=== PATIENT | female | born 1960 | race Caucasian/White ===

== ENCOUNTER 2020-05-14 07:24 | Outpatient (REF) | payer OTHER, SELFPAY ==
--- NOTE | 2020-05-14 07:28 | MM_ITS ---
EXAMINATION: MM SCREENING DIGITAL BREAST TOMOSYNTHESIS, BILATERAL CLINICAL INFORMATION: Screening. Asymptomatic. The lifetime risk of breast cancer based on the Tyrer-Cuzick Model is 11%. COMPARISON: Mammography: 05/09/2019, 05/03/2018, 04/21/2017 TECHNIQUE: Digital breast tomosynthesis is performed in both the craniocaudal and mediolateral oblique views along with computer-aided detection (CAD). Synthesized 2D images are generated from the tomosynthesis. FINDINGS: There are scattered areas of fibroglandular density (ACR BI-RADS breast composition Category b). Parenchymal pattern is similar to prior exams. There is no significant mass or architectural abnormality. Numerous fine punctate calcifications are again present central right breast and posterior outer left breast. There are no significant changes in number or distribution from prior exams. The axilla and skin contours are unremarkable. MM/MM tomosynthesis screening BI IMPRESSION: No significant changes from prior exams. ASSESSMENT: BI-RADS 2: Benign RECOMMENDATION: Routine annual mammography screening. This patient's information was entered into a reminder system with a target due date for their next mammogram.
== END 2020-05-14 07:25 | disposition home or self-care (01) ==
LOC: HO.MAMMO 07:24
PROVIDERS: PCP Family Medicine; Visit Provider Family Medicine
DX: Z12.31 Encounter for screening mammogram for malignant neoplasm of breast (principal)
CPT/HCPCS: 77063; 77067

== ENCOUNTER 2021-07-09 07:17 | Outpatient (REF) | payer OTHER, SELFPAY ==
--- NOTE | ~2021-07-09 | MM_ITS ---
EXAMINATION: MM SCREENING DIGITAL BREAST TOMOSYNTHESIS, BILATERAL CLINICAL INFORMATION: Screening. Asymptomatic. The lifetime risk of breast cancer based on the Tyrer-Cuzick Model is 10%. COMPARISON: Mammography: 05/14/2020, 05/09/2019, 05/03/2018 TECHNIQUE: Digital breast tomosynthesis is performed in both the craniocaudal and mediolateral oblique views along with computer-aided detection (CAD). Synthesized 2D images are generated from the tomosynthesis. FINDINGS: There are scattered areas of fibroglandular density (ACR BI-RADS breast composition Category b). Parenchymal pattern is similar to prior studies. There is no developing density or interval mass or architectural abnormality. Again, numerous fine calcifications are grouped central right breast and posterior outer left breast. There are no increasing calcifications. The axilla and skin contours are unremarkable. No significant changes. MM/MM tomosynthesis screening BI IMPRESSION: No mammographic evidence of malignancy. ASSESSMENT: BI-RADS 2: Benign RECOMMENDATION: Routine annual mammography screening. This patient's information was entered into a reminder system with a target due date for their next mammogram.
== END 2021-07-09 07:18 | disposition home or self-care (01) ==
LOC: HO.MAMMO 07:17
PROVIDERS: PCP Family Medicine; Visit Provider Family Medicine
DX: Z12.31 Encounter for screening mammogram for malignant neoplasm of breast (principal)
CPT/HCPCS: 77063; 77067

== ENCOUNTER 2022-07-18 07:21 | Outpatient (REF) | payer OTHER, SELFPAY ==
--- NOTE | ~2022-07-18 | MM_ITS ---
EXAMINATION: MM SCREENING DIGITAL BREAST TOMOSYNTHESIS, BILATERAL CLINICAL INFORMATION: Screening. Asymptomatic. The lifetime risk of breast cancer based on the Tyrer-Cuzick Model is 9%. COMPARISON: Mammography: 07/09/2021, 05/14/2020, 05/09/2019, 05/03/2018 TECHNIQUE: Digital breast tomosynthesis is performed in both the craniocaudal and mediolateral oblique views along with computer-aided detection (CAD). Synthesized 2D images are generated from the tomosynthesis. FINDINGS: There are scattered areas of fibroglandular density (ACR BI-RADS breast composition Category b). Parenchymal pattern is similar to prior exams and there is no developing density or interval architectural abnormality. There are no significant masses, abnormal calcifications, or other abnormalities. Punctate calcifications are again noted central and outer right breast and outer left breast similar in number and distribution to prior studies. The axilla and skin contours are unremarkable. No significant changes. MM/MM tomosynthesis screening BI IMPRESSION: No mammographic evidence of malignancy. ASSESSMENT: BI-RADS 2: Benign RECOMMENDATION: Routine annual mammography screening. This patient's information was entered into a reminder system with a target due date for their next mammogram.
== END 2022-07-18 07:22 | disposition home or self-care (01) ==
LOC: HO.MAMMO 07:21
PROVIDERS: PCP Family Medicine; Visit Provider Family Medicine
DX: Z12.31 Encounter for screening mammogram for malignant neoplasm of breast (principal)
CPT/HCPCS: 77063; 77067

== ENCOUNTER 2022-07-22 12:47 | Outpatient (REF) | payer OTHER, SELFPAY ==
--- NOTE | ~2022-07-22 | MM_ITS ---
EXAMINATION: BONE DENSITOMETRY CLINICAL INDICATION: Asymptomatic menopausal state. COMPARISON: Baseline BD dated 12/30/2014. TECHNIQUE: Using a [employer] DXA System (software version: 13.1) manufactured by [employer], dual-energy x-ray absorptiometry was performed of the lumbar spine and left hip. The images are of good technical quality. Summary results are attached. FINDINGS: AP SPINE L1-L4: Current: BMD 1.083 g/cm2, Z-score 1.0, T-score -0.8, normal, 1.5% increase from baseline (<5% change is not significant). Baseline: BMD 1.067 g/cm2. LEFT FEMUR, NECK: Current: BMD 0.756 g/cm2, Z-score -0.4, T-score -2.0, osteopenia. Baseline: BMD 0.863 g/cm2. LEFT FEMUR, TOTAL: Current: BMD 0.834 g/cm2, Z-score 0.0, T-score -1.4, osteopenia, 10.2% decrease from baseline (<5% change is not significant). Baseline: BMD 0.929 g/cm2. IDENTIFIED RISK FACTORS: Menopause. HISTORY OF FRACTURE: None listed. MEDICATIONS: Calcium supplements or multivitamin, vitamin D. MM/XR DEXA axial skeleton IMPRESSION: 1. DIAGNOSIS: Osteopenia based on the lowest T-score value of -2.0 in the femoral neck applying World Health Organization criteria. 2. 10-YEAR FRACTURE RISK PREDICTION, FRAX: Major osteoporotic fracture (clinical spine, forearm, hip or shoulder) 9.7%. Hip fracture 1.5%. 3. Treatment Recommendations: NOF guidelines recommend consideration for treatment in postmenopausal women and men age 50 and older presenting with the following: -A hip or vertebral (clinical or morphometric) fracture. -T-score less than or equal to -2.5 at the femoral neck or spine after appropriate evaluation to exclude secondary causes. -Low bone mass at the hip or spine and a 10-year fracture probability by FRAX of greater than or equal to 3% for hip fracture or greater than or equal to 20% for major osteoporotic fracture based on the [place] adapted WHO algorithm. 4. Other Recommendations: All treatment decisions require clinical judgment and consideration of individual patient factors, including patient preferences, comorbidities, previous drug use, risk factors not captured in the FRAX model (e.g. frailty, falls, vitamin D deficiency, increased bone turnover, interval significant decline in bone density) and possible under or overestimation of fracture risk by FRAX. Additional medical evaluation for secondary cause of low bone mineral density may be appropriate. FUTURE SCAN RECOMMENDATION: People with diagnosed cases of osteoporosis or at high risk for fracture should have regular bone mineral density tests. For patients eligible for Medicare, routine testing is allowed once every 2 years. The testing frequency can be increased to one year for patients who have rapidly progressing disease, those who are receiving or discontinuing medical therapy to restore bone mass, or have additional risk factors.
== END 2022-07-22 12:48 | disposition home or self-care (01) ==
LOC: HO.MAMMO 12:47
PROVIDERS: PCP Family Medicine; Visit Provider Family Medicine
DX: Z13.820 Encounter for screening for osteoporosis (principal); Z78.0 Asymptomatic menopausal state
CPT/HCPCS: 77080

== ENCOUNTER 2023-07-24 07:22 | Outpatient (REF) | payer OTHER, SELFPAY ==
--- NOTE | ~2023-07-24 | MM_ITS ---
EXAMINATION: MM SCREENING DIGITAL BREAST TOMOSYNTHESIS, BILATERAL CLINICAL INFORMATION: Screening. Asymptomatic. COMPARISON: Mammography: This study is compared with prior exams dating back to 2019. TECHNIQUE: Digital breast tomosynthesis is performed in both the craniocaudal and mediolateral oblique views along with computer-aided detection (CAD). Synthesized 2D images are generated from the tomosynthesis. FINDINGS: There are scattered areas of fibroglandular density (ACR BI-RADS breast composition Category b). There are no significant masses, abnormal calcifications, or other abnormalities. There are benign, scattered calcifications in each breast. MM/MM tomosynthesis screening BI IMPRESSION: No mammographic evidence of malignancy. ASSESSMENT: BI-RADS BI-RADS 2 - Benign Findings RECOMMENDATION: Routine annual mammography screening. 1 year F/U This examination should not preclude the clinical evaluation of a suspicious palpable abnormality. This patient's information was entered into a reminder system with a target due date for their next mammogram.
== END 2023-07-24 07:23 | disposition home or self-care (01) ==
LOC: HO.MAMMO 07:22
PROVIDERS: PCP Family Medicine; Visit Provider Family Medicine
DX: Z12.31 Encounter for screening mammogram for malignant neoplasm of breast (principal)
CPT/HCPCS: 77063; 77067

== ENCOUNTER → 2023-07-24 07:45 | Outpatient (BNV) | payer OTHER, SELFPAY | PROVIDERS: PCP Family Medicine; Visit Provider Radiology Diagnostic Radiology | DX: Z12.31 Encounter for screening mammogram for malignant neoplasm of breast (principal) | CPT/HCPCS: 77063; 77067 ==

== ENCOUNTER 2024-09-14 07:22 | Outpatient (REF) | payer OTHER, SELFPAY | END 2024-09-14 07:23 | disposition home or self-care (01) | LOC: HO.MAMMO 07:22 | PROVIDERS: PCP Family Medicine; Visit Provider Family Medicine | DX: Z12.31 Encounter for screening mammogram for malignant neoplasm of breast (principal) | CPT/HCPCS: 77063; 77067 ==

== ENCOUNTER → 2024-09-14 07:30 | Outpatient (BNV) | payer OTHER, SELFPAY | PROVIDERS: PCP Family Medicine; Visit Provider Internal Medicine | DX: Z12.31 Encounter for screening mammogram for malignant neoplasm of breast (principal) | CPT/HCPCS: 77063; 77067 ==

== ENCOUNTER 2024-10-11 08:13 | Outpatient (REF) | payer OTHER, SELFPAY ==
--- NOTE | ~2024-10-11 | MM_ITS ---
EXAMINATION: MM DIAGNOSTIC DIGITAL MAMMOGRAPHY, RIGHT CLINICAL INFORMATION: Screening for new grouped calcifications in the upper outer right breast middle depth. COMPARISON: Mammography: [facility] on PACS. TECHNIQUE: Digital mammography is performed in craniocaudal and mediolateral oblique views along with computer-aided detection (CAD). FINDINGS: There are scattered areas of fibroglandular density (ACR BI-RADS breast composition Category b). There are new grouped punctate and linear calcifications in the upper outer quadrant middle depth. No suspicious masses or other abnormal findings. Results are provided to the patient at time of visit by the technologist. MM/MM added views RT IMPRESSION: New grouped linear and punctate calcifications in the upper outer right breast. Histology with stereotactic core needle biopsy is recommended at this time. The findings and recommendations were discussed with the patient and the procedure will be scheduled. ASSESSMENT: BI-RADS BI-RADS 4 - Suspicious finding RECOMMENDATION: Biopsy recommended This patient's information was entered into a reminder system with a target due date for their next mammogram. Electronically signed by: Marycruz Pineda DO 10/11/2024 09:21 AM EDT
--- OUTSIDE RECORDS SUMMARY | 2024-10-11 08:18 | XMS_ITS | Patient Health Record ---
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 Problem Ankle sprain (58198630) Ankle Sprain (845.00) Active confirmed Problem Sprain of calcaneofibular ligament (66642105) Ankle Sprain/Latera l Ankle Sprain (845.02) Active confirmed Problem Ganglion cyst (60597782) Ganglion Cyst (727.43) Active confirmed Problem Hammer toe (832683462) Hammer toe (735.4) Active confirmed Problem Pain in limb (39341915) Pain in Limb (729.5) Active confirmed Plan Of Treatment Pending Test Test Name Order Date X ray : Ankle, left 3V 01/18/2012 51153 I&D ABSCESS- SIMPLE,SINGLE 012 23010- I&D ABSCESS-COMPLICATED,MULTI 06/2011, J0702- INJECT TENDON ORIGIN/INSER T 01/18/2012, J0702- INJECT or DRAIN, JOINT/BUR SA 01/18/2012 Insurance Providers Payer Name Payer Address Payer Phone Subscriber Number Group Number Insured Name Patient Relationship to Insured Coverage Start Date Coverage End Date [facility] [address] [place] [address] [phone] [id number] Padmini Price Self - patient is the insured Medical (General) History Medical History History ICD Code back, hip, knee pain chicken pox
== END 2024-10-11 08:14 | disposition home or self-care (01) ==
LOC: HO.MAMMO 08:13
PROVIDERS: PCP Family Medicine; Visit Provider Family Medicine
DX: R92.8 Other abnormal and inconclusive findings on diagnostic imaging of breast (principal)
CPT/HCPCS: 77065

== ENCOUNTER → 2024-10-11 08:30 | Outpatient (BNV) | payer OTHER, SELFPAY | PROVIDERS: PCP Family Medicine; Visit Provider Internal Medicine | DX: R92.1 Mammographic calcification found on diagnostic imaging of breast (principal) | CPT/HCPCS: 77061; 77065 ==

== ENCOUNTER 2024-11-06 07:46 | Outpatient (REF) | payer OTHER, SELFPAY ==
--- NOTE | ~2024-11-06 | MM_ITS ---
EXAMINATION: STEREOTACTICALLY-GUIDED RIGHT BREAST BIOPSY CLINICAL INFORMATION: New grouped calcifications upper outer right breast. COMPARISON: Priors on PACS. INFORMED CONSENT: After the details of the procedure, as well as the risks (including, but not limited to, bleeding, hematoma formation, and infection), benefits and alternatives (including doing nothing, short-interval follow up, and surgery) to the procedure were explained to the patient in detail and all of her questions were answered, informed written consent was obtained. TECHNIQUE/FINDINGS: A timeout was performed. The lesion intended for biopsy was identified stereotactically and targeted. The skin of the right breast was then cleansed with sterile solution. Using stereotactic guidance, aseptic technique, and 1% lidocaine with and without epinephrine for local anesthesia, a total of 12 cores were obtained through the targeted area with a 9-gauge vacuum-assisted Eviva core biopsy device from a superior approach. Specimen radiography reveals the targeted calcifications in the sampled tissue. At the completion of tissue sampling, a single cork-shaped metallic clip was deposited at the biopsy site. Adequate sampling was achieved. The postprocedure 2-view direct digital mammogram reveals satisfactory positioning of the biopsy clip. The patient tolerated the procedure well and, after assuring adequate hemostasis, was discharged in good condition after reviewing postbiopsy breast care instructions. Final pathology results are pending. MM/MM stereotactic biopsy RT IMPRESSION: 1. Uncomplicated stereotactically-guided core biopsy of the right breast. The 2-view direct digital postprocedure mammogram reveals satisfactory positioning of the biopsy clip. 2. Final pathology results are pending. A separate report with final recommendations will be issued once these results are made available. Electronically signed by: Marycruz Pineda DO 11/06/2024 10:45 AM EDT
--- OUTSIDE RECORDS SUMMARY | 2024-11-06 07:48 | XMS_ITS | Patient Health Record ---
Author Organization [facility] Address [address] [place] [address] Care Team Providers Care Certified Professional Ergonomist Name Role Phone Paul Linda MD Primary Care Provider Unavailab Rolando Bryan Unavailable [phone] Reason For Referral No Information Medications Medication SIG (Take, Route, Frequency, Duration) Notes Start Date End Date Status Lexapro 10 MG 1 tablet Orally Once a day; Duration: 30 day(s) Active Problems Problem Type SNOMED Code ICD Code Onset Dates Problem Status W/U Status Risk Notes Problem Subungual exostosis (12557856) 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) Active confirmed Problem Ankle sprain (19581535) Ankle Sprain (845.00) Active confirmed Problem Sprain of calcaneofibular ligament (85140933) Ankle Sprain/Latera l Ankle Sprain (845.02) Active confirmed Problem Ganglion cyst (44343005) Ganglion Cyst (727.43) Active confirmed Problem Hammer toe (303783627) Hammer toe (735.4) Active confirmed Problem Pain in limb (07677298) Pain in Limb (729.5) Active confirmed Plan Of Treatment Pending Test Test Name Order Date X ray : Ankle, left 3V 01/18/2012 11504 I&D ABSCESS- SIMPLE,SINGLE 012 96870- I&D ABSCESS-COMPLICATED,MULTI 06/2011, J0702- INJECT TENDON ORIGIN/INSER T 01/18/2012, J0702- INJECT or DRAIN, JOINT/BUR SA 01/18/2012 Insurance Providers Payer Name Payer Address Payer Phone Subscriber Number Group Number Insured Name Patient Relationship to Insured Coverage Start Date Coverage End Date [facility] [address] [place] [address] [phone] [id number] Padmini Price Self - patient is the insured Medical (General) History Medical History History ICD Code back, hip, knee pain chicken pox
[2024-11-06] MEDS: Lidocaine HCl 1 % 20 ML VIAL 4 ML SUBCUT (08:58)
[2024-11-06] MEDS: Lidocaine HCl 1%/Epi 1:100,000 10 ML VIAL SUBCUT (08:59)
== END 2024-11-06 07:47 | disposition home or self-care (01) ==
LOC: HO.MAMMO 07:46
PROVIDERS: PCP Family Medicine; Visit Provider Family Medicine
DX: R92.8 Other abnormal and inconclusive findings on diagnostic imaging of breast (principal)
CPT/HCPCS: 19081; 88305; 88341; 88342; 88360; A4648; J2003; J2004

== ENCOUNTER → 2024-11-06 08:00 | Outpatient (BNV) | payer OTHER, SELFPAY | PROVIDERS: PCP Family Medicine; Visit Provider Internal Medicine | DX: R92.1 Mammographic calcification found on diagnostic imaging of breast (principal) | CPT/HCPCS: 19081; 77065 ==

== ENCOUNTER 2024-11-20 14:37 | Outpatient (AMB) | payer OTHER, SELFPAY ==
--- NOTE | 2024-11-20 14:46 | MHC.OFFVIS ---
Vital Signs 11/20/24 15:17 Height 5 ft 3.5 in Weight 118 lb 2 oz BMI 20.6 BP 160/75 H Blood Pressure Location Lt brachial Position Sitting Pulse 97 Intake Visit Reasons: DCIS right breast Intake Note: Patient is seen in office for DCIS of the right breast, refer by Dr Mcmillan. 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 A screening mammogram performed 09/14/2024 with a additional images obtained on 10/11/2024 revealed a cluster of new grouped linear and punctate calcifications located in the upper outer right breast were felt to be suspicious for malignancy (BI-RADS 4). She subsequently underwent stereotactic guided core biopsy on 11/06/2024. Pathology revealed ductal carcinoma in-situ, nuclear grade 3 with necrosis and calcifications, ER positive, ND low positive. She denies a previous history of breast problems or breast surgery other than a small left breast cyst. Her family history is negative for breast cancer but positive for colon cancer in her mother. She is 1, menarche was at age 10. She is postmenopausal but can not remember when her last period was. She denies hormone replacement therapy. [facility] Surgical History History of total right hip replacement Hx of repair of right rotator cuff Family History Mother Colon cancer Paternal Uncle Lung cancer Social History Alcohol intake: current Alcohol intake frequency: holidays/special occasions only Patient Tobacco Use Status: Never used Tobacco Female Reproductive History Menstrual Age of Menarche: 8 Total pregnancies: 0 Review of Systems Const All systems reviewed & are unremarkable except as noted in HPI and below Denies chills, Denies fever(s), Denies headache(s), Denies poor appetite and Denies weakness ENT Denies headache(s) Card Denies chest pain, Denies irregular heart rhythm, Denies palpitations and Denies dyspnea Resp Denies cough, Denies excessive phlegm production and Denies dyspnea GI Denies abdominal pain, Denies bloating, Denies change in bowel habits, Denies constipation, Denies heartburn, Denies diarrhea, Denies nausea and Denies vomiting Denies urinary frequency Musc Denies back pain, Denies muscle weakness and Denies numbness Skin/Breast Denies changing lesions and Denies unusual bruising Neuro Denies headache(s), Denies numbness, Denies paresthesias and Denies weakness Psych Denies anxiety and Denies depression Endo Denies palpitations Ulis/Lymph Denies lymphadenopathy Physical Exam Const General: cooperative and no acute distress Nutritional Appearance: well nourished Orientation/consciousness: patient oriented x3 Limitations: no limitations HEENT Head: Yes normocephalic and Yes atraumatic Ears: hearing grossly normal bilaterally Chest Other: Left breast: No skin change, nipple discharge, nipple retraction, palpable mass or enlarged lymph nodes. Right breast: Biopsy site in the upper outer quadrant with an overlying ecchymotic area. Palpable inflammatory change measuring approximately 2 cm in the upper outer quadrant. No other palpable mass, skin change, nipple discharge or enlarged lymph nodes. Chest/axillae images:  1. Biopsy site Resp Effort & Inspection: normal respiratory effort, no audible wheezes, no cough and no respiratory distress Cardio Jugular venous distension: no JVD GI Inspection: Yes normal to inspection Skin Other: Warm, dry, no rash Neuro General: patient oriented x3 Extrem General: Yes no clubbing, cyanosis or edema Assessment & Plan Assessment & Plan (1) Ductal carcinoma in situ of right breast: Code(s): D05.11 - Intraductal carcinoma in situ of right breast Category: Medical Plan 64-year-old female patient with a recently diagnosed ductal carcinoma in-situ in the right breast upper outer quadrant. We discussed the treatment options including lumpectomy followed by radiation therapy and adjuvant antiestrogen therapy. After discussion of the procedure, risks, and alternatives, she consents to a right breast lumpectomy with localizer. She will follow up with Medical Oncology (Dr. Mcmillan) once the pathology results are complete. Coding Level of Care Code New Pt Level 4 (35473) Diagnoses Ductal carcinoma in situ of right breast D05.11
--- OUTSIDE RECORDS SUMMARY | 2024-11-20 15:04 | XMS_ITS | Patient Health Record ---
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) Active confirmed Problem Ankle sprain (87433096) Ankle Sprain (845.00) Active confirmed Problem Sprain of calcaneofibular ligament (59630725) Ankle Sprain/Latera l Ankle Sprain (845.02) Active confirmed Problem Ganglion cyst (05306015) Ganglion Cyst (727.43) Active confirmed Problem Hammer toe (058943976) Hammer toe (735.4) Active confirmed Problem Pain in limb (68529578) Pain in Limb (729.5) Active confirmed Plan Of Treatment Pending Test Test Name Order Date X ray : Ankle, left 3V 01/18/2012 12165 I&D ABSCESS- SIMPLE,SINGLE 012 06552- I&D ABSCESS-COMPLICATED,MULTI 06/2011, J0702- INJECT TENDON ORIGIN/INSER T 01/18/2012, J0702- INJECT or DRAIN, JOINT/BUR SA 01/18/2012 Insurance Providers Payer Name Payer Address Payer Phone Subscriber Number Group Number Insured Name Patient Relationship to Insured Coverage Start Date Coverage End Date [facility] [address] [place] [address] [id number] Padmini Price Self - patient is the insured Medical (General) History Medical History History ICD Code back, hip, knee pain chicken pox
[2024-11-20 15:17] VITALS: BP 160/75; PULSE 97; BMI 20.6
== END 2024-11-20 15:23 | disposition home or self-care (01) ==
LOC: HO.HGS 14:38
PROVIDERS: PCP Family Medicine; Visit Provider Surgery
DX: D05.11 Intraductal carcinoma in situ of right breast (principal)
CPT/HCPCS: 99204

== ENCOUNTER 2024-11-27 07:44 | Outpatient (REF) | payer OTHER, SELFPAY ==
--- NOTE | ~2024-11-27 | MM_ITS ---
EXAMINATION: MM MAMMOGRAM GUIDED RFID LOCALIZATION BREAST, RIGHT BREAST CLINICAL INFORMATION: Biopsy-proven DCIS right breast upper outer quadrant here for localization COMPARISON: Priors on PACS. TECHNIQUE NEEDLE LOC: Proper informed consent is obtained from the patient after discussion of the procedure, potential risks and complications, and alternatives including declining the procedure today. Patient was given an opportunity for questions. The patient appeared to understand. The patient consented to the procedure and signed the consent form. GUIDANCE: Digital mammography. APPROACH: Superior. TARGET: Cork marker clip.. ANESTHESIA: carbonated lidocaine 1%: LOCALIZATION SYSTEM: 480 Biomedical LOCallizer Wire-Free Guidance System with 12g needle applicator. RADIOFREQUENCY TAG: ID # [id number] RF Tag ID confirmed with LOCalizer Guidance System prior to placement. The skin is prepped and local anesthesia administered. The needle is positioned and RFID tag deployed. Final images demonstrate the LOCalizer RF tag to reside adjacent to the cortex marker clip in the upper outer quadrant. The patient tolerated the procedure well and had no immediate complications. Dressing placed and home instructions reviewed. MM/MM RF Tag device RT IMPRESSION: -Status post right breast RFID localization. Electronically signed by: Marycruz Pineda DO 11/27/2024 10:52 AM EDT
--- OUTSIDE RECORDS SUMMARY | 2024-11-27 07:47 | XMS_ITS | Patient Health Record ---
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) Active confirmed Problem Ankle sprain (04576860) Ankle Sprain (845.00) Active confirmed Problem Sprain of calcaneofibular ligament (46229115) Ankle Sprain/Latera l Ankle Sprain (845.02) Active confirmed Problem Ganglion cyst (62349358) Ganglion Cyst (727.43) Active confirmed Problem Hammer toe (793965043) Hammer toe (735.4) Active confirmed Problem Pain in limb (06082391) Pain in Limb (729.5) Active confirmed Plan Of Treatment Pending Test Test Name Order Date X ray : Ankle, left 3V 01/18/2012 72031 I&D ABSCESS- SIMPLE,SINGLE 012 76206- I&D ABSCESS-COMPLICATED,MULTI 06/2011, J0702- INJECT TENDON ORIGIN/INSER T 01/18/2012, J0702- INJECT or DRAIN, JOINT/BUR SA 01/18/2012 Insurance Providers Payer Name Payer Address Payer Phone Subscriber Number Group Number Insured Name Patient Relationship to Insured Coverage Start Date Coverage End Date [facility] [address] [place] [address] [id number] Padmini Price Self - patient is the insured Medical (General) History Medical History History ICD Code back, hip, knee pain chicken pox
[2024-11-27] MEDS: Lidocaine HCl 1 % 20 ML VIAL 9 ML SUBCUT (09:06)
== END 2024-11-27 07:45 | disposition home or self-care (01) ==
LOC: HO.MAMMO 07:44
PROVIDERS: PCP Family Medicine; Visit Provider Surgery
DX: D05.11 Intraductal carcinoma in situ of right breast (principal); Z12.31 Encounter for screening mammogram for malignant neoplasm of breast
CPT/HCPCS: 19281; C1819; J2003

== ENCOUNTER → 2024-11-27 08:00 | Outpatient (BNV) | payer OTHER, SELFPAY | PROVIDERS: PCP Family Medicine; Visit Provider Internal Medicine | DX: D05.11 Intraductal carcinoma in situ of right breast (principal) | CPT/HCPCS: 19281 ==

== ENCOUNTER 2024-12-09 10:46 | Day surgery (SDC) | payer OTHER, SELFPAY ==
--- OUTSIDE RECORDS SUMMARY | 2024-11-22 13:17 | XMS_ITS | Patient Health Record ---
Author Organization [facility] Address [address] [place] [address] Care Team Providers Care Kitchen Stewardess Name Role Phone Paul Linda MD Primary Care Provider Unavailab Rolando Bryan Unavailable [phone] Reason For Referral No Information Medications Medication SIG (Take, Route, Frequency, Duration) Notes Start Date End Date Status Lexapro 10 MG 1 tablet Orally Once a day; Duration: 30 day(s) Active Problems Problem Type SNOMED Code ICD Code Onset Dates Problem Status W/U Status Risk Notes Problem Subungual exostosis (73257350) 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) Active confirmed Problem Ankle sprain (59179897) Ankle Sprain (845.00) Active confirmed Problem Sprain of calcaneofibular ligament (99096847) Ankle Sprain/Latera l Ankle Sprain (845.02) Active confirmed Problem Ganglion cyst (10994995) Ganglion Cyst (727.43) Active confirmed Problem Hammer toe (127909023) Hammer toe (735.4) Active confirmed Problem Pain in limb (07547754) Pain in Limb (729.5) Active confirmed Plan Of Treatment Pending Test Test Name Order Date X ray : Ankle, left 3V 01/18/2012 79833 I&D ABSCESS- SIMPLE,SINGLE 012 80997- I&D ABSCESS-COMPLICATED,MULTI 06/2011, J0702- INJECT TENDON ORIGIN/INSER T 01/18/2012, J0702- INJECT or DRAIN, JOINT/BUR SA 01/18/2012 Insurance Providers Payer Name Payer Address Payer Phone Subscriber Number Group Number Insured Name Patient Relationship to Insured Coverage Start Date Coverage End Date [facility] [address] [place] [address] [phone] [id number] Padmini Price Self - patient is the insured Medical (General) History Medical History History ICD Code back, hip, knee pain chicken pox
[2024-12-05 12:06] VITALS: BMI 20.6
--- NOTE | 2024-12-05 15:07 | HO.ANESPROP2 ---
HPI - Anesthesia Eval Consult details Narrative: 64yo F for Right Breast Lumpectomy w/LOCalizer PMFSH Active Problems Active Problems: All Active Problems Ductal carcinoma in situ of right breast (Acute) Past Medical History Medical History Osteopenia Breast cancer Family History Family History Mother Colon cancer Paternal Uncle Lung cancer Surgical History Surgical History History of surgery on arm History of total right hip replacement Hx of repair of right rotator cuff Social History Social History Are you a primary rn coronary care unit to a significant other at home: No Do you presently have visiting nurse or other home services: No Alcohol intake: current Alcohol intake frequency: holidays/special occasions only Patient Tobacco Use Status: Never used Tobacco Meds Allergies Allergy/AdvReac Type Severity Reaction Status Date / Time No Known Allergies Allergy Verified 12/09/24 11:56 Active Medications: Current Medications Lactated Ringer's (Lr) 1,000 mls @ 100 mls/hr IVCONT .Q10H JEFF Home Medications ?Medication ?Instructions ?Recorded ?Confirmed ?Last Taken ?Type escitalopram oxalate 10 mg tablet 10 mg PO DAILY 11/20/24 12/05/24 Unknown History calcium 600 mg (as 1 tab PO BID 12/05/24 12/05/24 Unknown History carbonate)-vitamin D3 5 mcg (200 unit) tablet multivitamin 1 tab PO DAILY 12/05/24 12/05/24 Unknown History Exam Height,Weight and Vital Signs: Height 5 ft 3.5 in Weight 53.581 kg Assessment and Plan Assessment Anesthesia Assessment: Chart Reviewed
--- NOTE | ~2024-12-09 | MM_ITS ---
Right single specimen radiograph demonstrates the cork shape biopsy clip and the LOCalizer tag within the specimen. Electronically signed by: Cj Sánchez MD 12/09/2024 02:34 PM EDT
--- NOTE | 2024-12-09 11:39 | MHC.SHP ---
Pre-Procedural Eval Section A - 24 Hr Update-Section A only Date of Service: 12/09/24 The patient is an INPATIENT: No Changes since office visit: Yes Patient answered all questions; No Cold of Flu in the past 2 weeks, No New Medical Problems and No Changes in Medication The patient has been examined within 24 hours of the surgical procedure. The History & Physical has been completed within 30 days and I have reviewed it.: Yes Section B - Complete if H&P > 30 days Chief Complaint: Intraductal carcinoma in situ of right breast Allergies: Allergies Allergy/AdvReac Type Severity Reaction Status Date / Time No Known Allergies Allergy Verified 11/20/24 15:21 Plan Diagnosis/Plan: Unchanged I have reviewed the history and physical and performed a pertinent physical examination on my patient. No changes have occurred unless specified. Time Spent With Patient Time: Total time managing care of this patient today ____ minutes.
[2024-12-09] MEDS: Lactated Ringers 1,000 ML 100 ML IVCONT (11:52)
[2024-12-09 11:54] VITALS: BMI 20.8
[2024-12-09 11:56] VITALS: BP 140/69; PULSE 89; RESP 18; TEMP 36.8; O2SAT 100
--- NOTE | 2024-12-09 12:24 | HO.ANESPROP2 ---
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) Past Medical History Medical History Osteopenia Breast cancer Functional capacity: independent ambulation Patient : No Family History Family History Mother Colon cancer Paternal Uncle Lung cancer Family history of problems with anesthesia: No Surgical History Surgical History History of surgery on arm History of total right hip replacement Hx of repair of right rotator cuff History of Problems with Anesthesia: No Social History Social History Are you a primary palliative care nurse to a significant other at home: No Do you presently have visiting nurse or other home services: No Alcohol intake: current Alcohol intake frequency: holidays/special occasions only Patient Tobacco Use Status: Never used Tobacco Have you been hit, kicked, punched, or otherwise hurt by someone within the past year? If so, by whom?: No Are you DNR?: No Advance Directives: No Advance Directives Information Provided: Yes Poor oral hygiene: No Meds Allergies Allergy/AdvReac Type Severity Reaction Status Date / Time No Known Allergies Allergy Verified 12/09/24 11:56 Active Medications: Current Medications Lactated Ringer's (Lr) 1,000 mls @ 100 mls/hr IVCONT .Q10H JEFF Last Admin: 12/09/24 11:52 Dose: 100 mls/hr Home Medications ?Medication ?Instructions ?Recorded ?Confirmed ?Last Taken ?Type escitalopram oxalate 10 mg tablet 10 mg PO DAILY 11/20/24 12/05/24 Unknown History calcium 600 mg (as 1 tab PO BID 12/05/24 12/05/24 Unknown History carbonate)-vitamin D3 5 mcg (200 unit) tablet multivitamin 1 tab PO DAILY 12/05/24 12/05/24 Unknown History Exam Height,Weight and Vital Signs: Height 5 ft 3.5 in Weight 54 kg Last Vital Signs Temp 98.2 F 12/09/24 11:56 Pulse 89 12/09/24 11:56 Resp 18 12/09/24 11:56 BP 140/69 H 12/09/24 11:56 Pulse Ox 100 12/09/24 11:56 O2 Del Method Room Air 12/09/24 11:56 Assessment and Plan Final Anesthetic Review Family History of Problems with Anesthesia: No History of Problems with Anesthesia: No
--- NOTE | 2024-12-09 14:55 | W.PM.OPN ---
Operative Note Operative Note Date of Service: 12/09/24 Narrative: Preoperative diagnosis: DCIS right breast upper outer quadrant Postoperative diagnosis: Same Procedure: Right breast lumpectomy with localizer Surgeon: Paul Fontenot MD Strategic Account Director: Bill Farah PA-C, MATILDA Fish Anesthesia: General LMA Indications for procedure: 64-year-old female patient presenting with a recently diagnosed right breast ductal carcinoma in-situ located in the upper outer quadrant. She presents today for right breast lumpectomy with localizer. Operative findings: Localizing clip and marking clip noted in specimen x-ray. Gross pathology confirmed biopsy cavity within the specimen. Margins are grossly negative. Specimen: Right breast lumpectomy upper outer quadrant Estimated blood loss: 5 mL Complications: None Procedure details: Patient was brought to the OR and placed in a supine position. After administering general anesthesia the patient's right breast was prepped with ChloraPrep and draped in a sterile fashion. A surgical time-out was called the consent confirmed. Patient received preoperative antibiotics and Venodyne boots were in place. Local anesthesia was infiltrated over the localizing clip using the localizing device to identify the area of clip placement. A curvilinear incision was made in the upper outer quadrant with a scalpel and carried out through subcutaneous tissue. Superior and inferior skin flaps were then created with the electrocautery. A core of tissue around the localizing clip was then obtained beginning with the medial margin followed by the superior margin, inferior margin, posterior margin, and finally medial margin. The specimen was marked with a long suture on the lateral margin, short suture the superior margin, and looped suture in the posterior margin. Specimen x-ray performed in the OR confirmed the marking clip and localizing clip within the specimen. Specimen was subsequently sent to pathology for further examination. Once this confirmed adequate margins the wounds were irrigated with saline solution and suctioned dry. Wounds were checked for hemostasis. Biopsy cavity was marked with hemoclips. Deep breast tissue was closed using interrupted 3-0 Polysorb sutures. Dermis was reapproximated using interrupted 3-0 Polysorb sutures. Skin was then closed using a running subcuticular 4-0 Polysorb suture. Steri-Strips, 4 x 4 gauze and Tegaderm were then applied. The patient tolerated the procedure well. Sponge, instrument, and needle counts reported as correct. Patient was transferred to PACU in stable condition.
[2024-12-09 15:03] VITALS: BP 118/56; PULSE 92; RESP 16; TEMP 36.9; O2SAT 99
[2024-12-09 15:08] VITALS: BP 129/54; PULSE 86; RESP 12; O2SAT 99
[2024-12-09 15:13] VITALS: BP 118/58; PULSE 77; RESP 16; O2SAT 99
[2024-12-09 15:30] VITALS: BP 126/58; PULSE 81; RESP 16; TEMP 36.3; O2SAT 96
== END 2024-12-09 16:11 | disposition home or self-care (01) ==
PROVIDERS: PCP Family Medicine; Visit Provider Surgery
PROC: (CPT 19301; principal; 2024-12-09 13:20)
DX: D05.11 Intraductal carcinoma in situ of right breast (principal); Z17.0 Estrogen receptor positive status [ER+]; Z17.21 Progesterone receptor positive status; N60.41 Mammary duct ectasia of right breast; M85.80 Other specified disorders of bone density and structure, unspecified site; Z79.899 Other long term (current) drug therapy; Z98.890 Other specified postprocedural states
CPT/HCPCS: 19301; 88307; C1889; J0690; J1100; J2003; J2250; J2405; J2704; J2795; J3010

== ENCOUNTER → 2024-12-09 10:46 | Outpatient (BNV) | payer OTHER, SELFPAY | PROVIDERS: PCP Family Medicine; Visit Provider Surgery | DX: D05.11 Intraductal carcinoma in situ of right breast (principal) | CPT/HCPCS: 19301 ==

== ENCOUNTER 2024-12-23 09:15 | Outpatient (AMB) | payer OTHER, SELFPAY ==
--- OUTSIDE RECORDS SUMMARY | 2024-12-20 23:59 | XMS_ITS | Continuity of Care Document ---
Author Organization [facility] Address [address] [place] [address]- Care Team Providers Care Lpc Name Role Phone Oralia Nelson MD Primary Care Physician Encounter [facility] Date(s): 11/20/24 - 12/20/24 [facility] [address] [place] [address]- Encounter Type: Triage Allergies, Adverse Reactions, Alerts No Known Allergies Medications acetaminophen 325 mg oral tablet 650 mg, By Mouth, Every 6 hours, may take OTC. not to exceed 4000 mg/day, Refills 0, Maintenance, 08/10/22 11:42:00 AM EDT, Partial fill upon patient request if the prescription is for a schedule II opioid drug. Start Date: 08/10/22 Status: Ordered Medication Dispense Status: Completed Total Allowed Fills: 1 Fills Dispensed: 0 Aspirin Tablet 325 mg, By Mouth, 2 times a day, Refills 0, Maintenance, 08/10/22 11:42:00 AM EDT, Partial fill uponpatient request if the prescription is for a schedule II opioid drug. Start Date: 08/10/22 Status: Ordered Medication Dispense Status: Completed Total Allowed Fills: 1 Fills Dispensed: 0 celecoxib 200 mg oral capsule 1 capsule = 200 mg, By Mouth, Daily, 0 Refills, Maintenance, 08/10/22 11:42:00 AM EDT, Capsule, Partial fill upon patient request if the prescription is for a schedule II opioid drug. Start Date: 08/10/22 Status: Ordered Medication Dispense Status: Completed Total Allowed Fills: 1 Fills Dispensed: 0 Colace Capsule 100 mg, 1, capsule, By Mouth, 2 times a day, Refills 0, Maintenance, 08/10/22 11:42:00 AM EDT, Partial fill upon patient request if the prescription is for a schedule II opioid drug. Start Date: 08/10/22 Status: Ordered Medication Dispense Status: Completed Total Allowed Fills: 1 Fills Dispensed: 0 escitalopram 10 mg oral tablet 1 tablet = 10 mg, By Mouth, Daily, 0 Refills, Maintenance, 08/10/22 11:41:00 AM EDT, Tablet, Partialfill upon patient request if the prescription is for a schedule II opioid drug. Start Date: 08/10/22 Status: Ordered Medication Dispense Status: Completed Total Allowed Fills: 1 Fills Dispensed: 0 MiraLax Powder 1 pack/packet = 17 Gm, By Mouth, Daily, PRN Constipation, 0 Refills, Maintenance, 08/10/22 11:42:00 AM EDT, Powder, Partial fill upon patient request if the prescription is for a schedule II opioid drug. Start Date: 08/10/22 Status: Ordered Medication Dispense Status: Completed Total Allowed Fills: 1 Fills Dispensed: 0 pantoprazole 40 mg oral delayed release tablet = 40 mg, By Mouth, Daily, 0 Refills, Maintenance, 08/10/22 11:42:00 AM EDT, EC Tablet Start Date: 08/10/22 Status: Ordered Medication Dispense Status: Completed Total Allowed Fills: 1 Fills Dispensed: 0 senna 187 mg oral tablet 1 tablet = 8.6 mg, By Mouth, Daily at bedtime, PRN as needed for constipation, 0 Refills, Maintenance, 08/10/22 11:42:00 AM EDT, Tablet, Partial fill upon patient request if the prescription is for a schedule II opioid drug. Start Date: 08/10/22 Status: Ordered Medication Dispense Status: Completed Total Allowed Fills: 1 Fills Dispensed: 0 Problem List Condition Confirmation Course Effective Dates Status H ealth Status Informant Mild major depression Confirmed Active Hip osteoarthritis Confirmed Active Social History Social History Type Response Smoking Status Never (less than 100 in lifetime) entered on: 07/07/22 Sex Sex Representation Female (finding) Patient Care team information Care Team Personnel Name: Oralia Nelson MD Position: [facility] Physician - Primary Care Member Role: PCP Address: [address] [place] [address] Telecom: Name: Sahil Nieves RN Position: [facility] RN Member Role: Primary Care Nurse Care Team Related Persons Name: JEAN-PAUL WOLFF Insurance Providers [facility]or [facility]ayer[facility] NON P O P Payer Identifier: JAZLYN Member Number: [id number] Group Number: [id number] Subscriber Identifier: NA Relationship to Subscriber: self Coverage Type: Other Private Insurance Coverage Verification Date: NA Telecom: NA Address:
--- NOTE | 2024-12-23 09:21 | MHC.OFFVIS ---
Vital Signs 12/23/24 09:34 Height 5 ft 3.5 in Weight 119 lb 2 oz BMI 20.8 BP 142/64 H Blood Pressure Location Lt brachial Position Sitting Pulse 77 Intake Visit Reasons: S/P Rt breast lumpectomy w/localizer Intake Note: Patient is seen in office for post op assessment post right breast lumpectomy with localizer. Pt c/o: admits to tender and bruise, denies redness, discharge or other concerns surgery:12/09/24 Beauty Culturist Apprentice Required: No Allergies No Known Allergies Allergy (Verified 12/23/24 09:33) HPI Comments Details: 64-year-old female patient presenting for management of a newly diagnosed right breast ductal carcinoma in-situ. A screening mammogram performed 09/14/2024 with a additional images obtained on 10/11/2024 revealed a cluster of new grouped linear and punctate calcifications located in the upper outer right breast were felt to be suspicious for malignancy (BI-RADS 4). She subsequently underwent stereotactic guided core biopsy on 11/06/2024. Pathology revealed ductal carcinoma in-situ, nuclear grade 3 with necrosis and calcifications, ER positive, ID low positive. She denies a previous history of breast problems or breast surgery other than a small left breast cyst. Her family history is negative for breast cancer but positive for colon cancer in her mother. She is 1, menarche was at age 10. She is postmenopausal but can not remember when her last period was. She denies hormone replacement therapy. On 12/09/2024 she underwent a right breast lumpectomy. Pathology confirmed ductal carcinoma in-situ, nuclear grade 3 with negative margins (closest margin 2 mm to the anterior superior margin). AJCC stage 8th addition P TIS Nx. She tolerated the procedure well and returns today for wound check. [facility] Medical History Osteopenia Breast cancer Surgical History History of lumpectomy of right breast (12/09/24) History of surgery on arm History of total right hip replacement Hx of repair of right rotator cuff Family History Mother Colon cancer Paternal Uncle Lung cancer Social History Are you a primary health care law specialist to a significant other at home: No Do you presently have visiting nurse or other home services: No Alcohol intake: current Alcohol intake frequency: holidays/special occasions only Patient Tobacco Use Status: Never used Tobacco Female Reproductive History Menstrual Age of Menarche: 8 Review of Systems Const All systems reviewed & are unremarkable except as noted in HPI and below Physical Exam Const General: cooperative and no acute distress Nutritional Appearance: well nourished Orientation/consciousness: patient oriented x3 Limitations: no limitations HEENT Head: Yes normocephalic and Yes atraumatic Ears: hearing grossly normal bilaterally Chest Other: Left breast: No skin change, nipple discharge, nipple retraction, palpable mass or enlarged lymph nodes. Right breast: Incision in the right breast upper outer quadrant clean, dry, and intact, surrounding ecchymosis. Chest/axillae images:  1. Well-healed incision in the upper outer quadrant without redness or discharge, no hematoma or seroma noted. Resp Effort & Inspection: normal respiratory effort, no audible wheezes, no cough and no respiratory distress Cardio Jugular venous distension: no JVD GI Inspection: Yes normal to inspection Skin Other: Warm, dry, no rash Neuro General: patient oriented x3 Extrem General: Yes no clubbing, cyanosis or edema Assessment & Plan Assessment & Plan (1) Ductal carcinoma in situ of right breast: Code(s): D05.11 - Intraductal carcinoma in situ of right breast Category: Medical Plan 64-year-old female patient presenting with ductal carcinoma in-situ upper outer quadrant right breast, now status post right breast lumpectomy with localizer on 12/09/2024. Pathology revealed DCIS with 2 mm margins. I recommended oncology evaluation. We discussed radiation and hormonal therapy therapy as well. She will follow up in 1 month for wound examination. She is welcome to call sooner for any new concerns. Coding Level of Care Code Global (28398) Diagnoses Ductal carcinoma in situ of right breast D05.11
[2024-12-23 09:34] VITALS: BP 142/64; PULSE 77; BMI 20.8
--- OUTSIDE RECORDS SUMMARY | 2024-12-23 10:23 | XMS_ITS | Patient Health Record ---
Author Organization [facility] Address [address] [place] [address] Care Team Providers Care Grounds Manager Name Role Phone Paul Linda MD Primary Care Provider Unavailab Rolando Bryan Unavailable [phone] Reason For Referral No Information Medications Medication SIG (Take, Route, Frequency, Duration) Notes Start Date End Date Status Lexapro 10 MG 1 tablet Orally Once a day; Duration: 30 day(s) Active Problems Problem Type SNOMED Code ICD Code Onset Dates Problem Status W/U Status Risk Notes Problem Subungual exostosis (13086449) 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) Active confirmed Problem Ankle sprain (27047047) Ankle Sprain (845.00) Active confirmed Problem Sprain of calcaneofibular ligament (91151507) Ankle Sprain/Latera l Ankle Sprain (845.02) Active confirmed Problem Ganglion cyst (51711678) Ganglion Cyst (727.43) Active confirmed Problem Hammer toe (148039408) Hammer toe (735.4) Active confirmed Problem Pain in limb (57025833) Pain in Limb (729.5) Active confirmed Plan Of Treatment Pending Test Test Name Order Date X ray : Ankle, left 3V 01/18/2012 04346 I&D ABSCESS- SIMPLE,SINGLE 012 79702- I&D ABSCESS-COMPLICATED,MULTI 06/2011, J0702- INJECT TENDON ORIGIN/INSER T 01/18/2012, J0702- INJECT or DRAIN, JOINT/BUR SA 01/18/2012 Insurance Providers Payer Name Payer Address Payer Phone Subscriber Number Group Number Insured Name Patient Relationship to Insured Coverage Start Date Coverage End Date [facility] [address] [place] [phone] [id number] Padmini Price Self - patient is the insured Medical (General) History Medical History History ICD Code back, hip, knee pain chicken pox
== END 2024-12-23 09:39 | disposition home or self-care (01) ==
LOC: HO.HGS 09:16
PROVIDERS: PCP Family Medicine; Visit Provider Surgery
DX: D05.11 Intraductal carcinoma in situ of right breast (principal)
CPT/HCPCS: 99024

== ENCOUNTER → 2025-01-03 13:48 | Outpatient (BNV) | payer OTHER, SELFPAY | PROVIDERS: PCP Family Medicine; Visit Provider Internal Medicine Medical Oncology | DX: M85.80 Other specified disorders of bone density and structure, unspecified site (principal); Z86.000 Personal history of in-situ neoplasm of breast | CPT/HCPCS: 99204 ==

== ENCOUNTER 2025-01-28 13:42 | Outpatient (AMB) | payer OTHER, SELFPAY ==
--- NOTE | 2025-01-28 13:44 | A.OFFVIS_ITS ---
Vital Signs 3 01/28/25 13:47 Height 5 ft 3 in Weight 119 lb 0.794 oz BMI 21.1 BP 135/65 Blood Pressure Location Lt brachial Position Sitting Intake Visit Reasons: one month, post right breast lumpectomy Intake Note: Patient is seen in office for one month follow up visit, post right breast lumpectomy. 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 A screening mammogram performed 09/14/2024 with a additional images obtained on 10/11/2024 revealed a cluster of new grouped linear and punctate calcifications located in the upper outer right breast were felt to be suspicious for malignancy (BI-RADS 4). 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 On 12/09/2024 she underwent a right breast lumpectomy which confirmed ductal carcinoma in-situ, nuclear grade 3 with negative margins (closest margin 2 mm to the anterior superior margin), AJCC stage 8th addition P TIS Nx.She denies a previous history of breast problems or breast surgery other than a small left breast cyst. Her family history is negative for breast cancer but positive for colon cancer in her mother. She is 1, menarche was at age 10. She is postmenopausal but can not remember when her last period was. She denies hormone replacement therapy. She tolerated the procedure well and returns today for wound check. She was evaluated at [facility] for radiation therapy. She is considering declining radiation therapy due to the risks of lung inflammation which would affect her ability to run. She will be discussing this further with the radiation oncologist [facility] Medical History Osteopenia Breast cancer Surgical History History of lumpectomy of right breast (12/09/24) History of surgery on arm History of total right hip replacement Hx of repair of right rotator cuff Family History Mother Colon cancer Paternal Uncle Lung cancer Social History Household Members: None Housing: House Are you a primary assistant child care teacher to a significant other at home: No Do you presently have visiting nurse or other home services: No Alcohol intake: current Alcohol intake frequency: holidays/special occasions only Patient Tobacco Use Status: Never used Tobacco service: No Current occupational status: employed Female Reproductive History Menstrual Age of Menarche: 8 Physical Exam Const General: cooperative and no acute distress Nutritional Appearance: well nourished Orientation/consciousness: patient oriented x3 Limitations: no limitations HEENT Head: Yes normocephalic and Yes atraumatic Ears: hearing grossly normal bilaterally Chest Other: Right breast: Incision in the right breast upper outer quadrant clean, dry, and intact, surrounding ecchymosis. Chest/axillae images: 2 1. Incision upper outer quadrant right breast Resp Effort & Inspection: normal respiratory effort, no audible wheezes, no cough and no respiratory distress Cardio Jugular venous distension: no JVD GI Inspection: Yes normal to inspection Skin Other: Warm, dry, no rash Neuro General: patient oriented x3 Extrem General: Yes no clubbing, cyanosis or edema Assessment & Plan Assessment & Plan (1) Ductal carcinoma in situ of right breast: Code(s): D05.11 - Intraductal carcinoma in situ of right breast Category: Medical Plan 64-year-old female patient presenting with ductal carcinoma in-situ upper outer quadrant right breast, now status post right breast lumpectomy with localizer on 12/09/2024. Pathology revealed DCIS with 2 mm margins. She was evaluated by Dr. Landa and Doron Bañuelos radiation oncology. Examination today reveals no suspicious findings with her incision in the upper outer quadrant healing well. I recommended follow-up examination in approximately 6 months, sooner PRN. She expressed understanding and agrees with the plan. Coding Level of Care Code Global (62101) Diagnoses Ductal carcinoma in situ of right breast D05.11
[2025-01-28 13:47] VITALS: BP 135/65; BMI 21.1
--- OUTSIDE RECORDS SUMMARY | 2025-01-28 16:37 | XMS_ITS | Clinical Summary ---
Author Organization [facility] Address [address] [place] [phone] Phone Care Team Providers Care Mobile Application Architect Name Role Phone Oralia Nelson MD Primary Care Provider [phone] Allergies No known active allergies Medications escitalopram oxalate (LEXAPRO) 10 MG tablet Take 10 mg by mouth daily. Active Ca cit-D3-mag#11-zin a-hxzn-fto-bor (CALTRATE 600+D) 600 mg calcium- 800 unit-50 mg Tab Take 1 tablet by mouth 2 (two) times a day. Active therapeutic multivitamin tablet Take 1 tablet by mouth daily. Gummy Active Encounters Date Type Department Care Team Description 01/20/2025 1:30 PM EDT Office [place] [facility] Rad Onc [address] [place] [id number] Emilia Bhardwaj MD Malignant neoplasm of upper-outer quadrant of right breast in female, estrogen receptor positive (Primary Dx) 01/20/2025 Telephone [facility] Rad Onc [address] [place] [address] Emilia Bhardwaj MD PreAut 01/20/2025 Documentation [facility] Rad Onc [address] [place] [address] Елена Liu RN 01/14/2025 Telephone [facility] at [address] [address] Jadyn Vaca, [facility] Forms & Paperwork 01/13/2025 1:00 PM EDT Office Visit [facility] Onc [address] [place] [address] Emilia Bhardwaj MD Malignant neoplasm of upper-outer quadrant of right breast in female, estrogen receptor positive (Primary Dx) 01/08/2025 Ancillary Orders [facility] [address] [place] [address] Unknown, Candice, 01/08/2025 Ancillary Orders [facility] [address] [place] [address] Unknown, Unknown, MD 01/08/2025 Ancillary Orders [facility] [address] [place] [address] Unknown, Unknown, MD 01/08/2025 Ancillary Orders [facility] [address] [place] [address] Unknown, Candice, 12/09/2024 - 12/09/2024 11:59 PM EDT Hospital Encounter [facility] [address] [place] [address] Unknown, Unknown, MD Discharge Disposition: Home or Self Care 11/06/2024 - 11/06/2024 11:59 PM EDT Hospital Encounter [facility] [address] [place] [address] Unknown, Unknown, MD Discharge Disposition: Home or Self Care from Last 3 Months Family History Medical History Relation Comments Cancer Maternal Aunt Pt. unsure if valera d Breast Cancer Colon cancer Mother Lung cancer Paternal Cousin 1 Lung cancer Paternal Cousin 2 Lung cancer Paternal Uncle Relation Status Comments Maternal Aunt Mother Paternal Cousin 1 Alive Paternal Cousin 2 Alive Paternal Uncle Social History Tobacco Use Types Packs/Day Years Used Date Smoking Tobacco: Never Smokeless Tobacco: Never Tobacco Cessation:Counseling Given: Not Answered Comments:A lot of second hand smoke Alcohol Use Standard Drinks/Week Comments Yes 0 (1 standard drink = 0.6 oz pur e alcohol) Education Answer Date Recorded Are you interested in more education? Not on desi e 01/08/2025 Are you concerned about learning? Not on file 01/08/2025 No 01/08/2025 No 01/08/2025 Digital Access Answer Date Recorded No 01/08/2025 No 01/08/2025 Reliable internet access at home? Not on file 01/08/2025 Device with a working camera? Not on file Comments Unknown Sex and Gender Information Value Date Recorded Sex Assigned at Not on file Legal Sex Female 9:20 AM EDT Gender Identity Not on file Sexual Orientation Not on file Last Filed Vital Signs Vital Sign Reading Time Taken Comments Blood Pressure 134/90 01/13/2025 12:58 PM EDT Pulse 94 01/13/2025 12:58 PM EDT Temperature 36.6 C (97.9 F) 01/13/2025 12:58 PM EDT Respiratory Rate 18 01/13/2025 12:58 PM EDT Oxygen Saturation 98% 01/13/2025 12:58 PM EDT Inhaled Oxygen Concentration - - Weight 54.2 kg (119 lb 6.4 oz) 01/13/2025 12:58 PM EDT Height 160 cm (5' 3 ) 01/13/2025 12:58 PM EDT Body Mass Index 21.15 01/13/2025 12:58 PM EDT Plan of Treatment Upcoming Encounters Date Type Department Care Team (Late st Contact Info) Description 02/17/2025 4:10 PM EST Office Visit [facility] Rad Onc [address] [place] [address] Emilia Bhardwaj MD [address] [place] [address] 02/18/2025 4:00 PM EST Treatment [facility] Rad Onc [address] [place] [address] Emilia Bhardwaj MD [address] [place] [address] 02/19/2025 4:00 PM EST Treatment [facility] Rad [address] [address] Emilia Bhardwaj MD [address] [place] [address] 02/20/2025 4:00 PM EST Treatment [facility] [place] Rad Onc [address] [place] [address] Emilia Bhardwaj MD [address] [place] [address] 02/21/2025 4:00 PM EST Treatment [facility] Rad Onc [address] [place] [address] Emilia Bhardwaj MD [address] [place] [address] 02/24/2025 4:00 PM EST Treatment [facility] [place] Rad Onc [address] [place] [address] Emilia Bhardwaj MD [address] [place] [address] 02/25/2025 4:00 PM EST Treatment [facility] Rad Onc [address] [place] [address] Emilia Bhardwaj MD [address] [place] [address] 02/26/2025 4:00 PM EST Treatment [facility] Rad Onc [address] [place] [address] Emilia Bhardwaj MD [address] [place] [address] 02/27/2025 4:00 PM EST Treatment [facility] Rad Onc [address] [place] [address] Emilia Bhardwaj MD [address] [place] [address] 02/28/2025 4:00 PM EST Treatment [facility] Rad Onc [address] [place] [address] Emilia Bhardwaj MD [address] [place] [address] 03/03/2025 4:00 PM EST Treatment [facility] Onc [address] [place] [address] Emilia Bhardwaj MD [address] [place] [address] 03/04/2025 4:00 PM EST Treatment [facility] Rad Onc [address] [place] [address] Emilia Bhardwaj MD [address] [place] [address] 03/05/2025 4:00 PM EST Treatment [facility] [address] [address] Emilia Bhardwaj MD [address] [place] [address] 03/06/2025 4:00 PM EST Treatment [facility] Rad Onc [address] [place] [address] Emilia Bhardwaj MD [address] [place] [address] 03/07/2025 4:00 PM EST Treatment [facility] Rad Onc [address] [place] [address] Emilia Bhardwaj MD [address] [place] [address] 03/10/2025 4:00 PM EST Treatment [facility] Rad Onc [address] [place] [address] Emilia Bhardwaj MD [address] [place] [address] 03/11/2025 4:00 PM EST Treatment [facility] Rad Onc [address] [place] [address] Emilia Bhardwaj MD [address] [place] [address] Health Maintenance Due Date Last Done Comments Adult Td,Tdap Booster 1959 LIPID PANEL 1959 DEPRESSION SCREENING 1971 HEPATITIS C SCREENING 1977 PNEUMOCOCCAL VACCINES (50+ years) (1 of 2 - PCV) 1978 ZOSTER VACCINES (1 of 2) 1978 COLOGUARD 01/25/2004 COLONOSCOPY 01/25/2004 COLORECTAL CANCER SCREENING 01/25/2004 FIT TEST 01/25/2004 FOBT 01/25/2004 SIGMOIDOSCOPY 01/25/2004 VIRTUAL COLONOSCOPY 01/25/2004 OSTEOPOROSIS SCREENING INITI AL (ONE-TIME) 01/25/2024 INFLUENZA VACCINE (#1) 2024 COVID-19 VACCINE (1 - 2024-2 6 season) 2024 MAMMOGRAM 11/06/2026 11/06/2024, 10/11/2024, 09/14/2024 RSV VACCINE (1 - 1-dose 75+ series) 2034 SMOKING STATUS SCREENING (On ce After 26 Yrs) Completed 01/13/2025 HEPATITIS A VACCINES Aged Out No long er eligible based on patient's age to complete this topic HIB VACCINES Aged Out No longer eligi ble based on patient's age to complete this topic MENINGOCOCCAL VACCINES (ACWY) Aged Out No longer eligible based on patient's age to complete this topic MENINGOCOCCAL VACCINES (B) Aged Out N o longer eligible based on patient's age to complete this topic Medical Devices Not on file Procedures Procedure Name Priority Date/Time Associated Diagnosis Comments BI MAMMOGRAM SPECIMENT OUTSIDE (NO INTERPRETATION) Routine 12/09/2024 12:00 AM EDT BI MAMMOGRAM OUTSIDE (NO INTERPRETATION) Routine 11/06/2024 12:00 AM EDT from Last 3 Months Results * Mammogram Specimen Outside (No Interpretation) (12/09/2024 12:00 AM EDT) Narrative SYSTEMGENERATED, DOCUMENTATION - 01/08/2025 3:07 PM EDT This study is for PACS storage only and not for interpretation. us Unknown Unknown MD IMG OUTSIDE IMAGING W/OUT INT ERPRETATION Final Result * Mammogram Outside (No Interpretation) (11/06/2024 12:00 AM EDT) Narrative SYSTEMGENERATED, DOCUMENTATION - 01/08/2025 3:09 PM EDT This study is for PACS storage only and not for interpretation. us Unknown Unknown MD IMG OUTSIDE IMAGING W/OUT INT ERPRETATION Final Result from Last 3 Months [id number] [id number] [facility] [address] [place] [address] [place] [address] [place], [place] [address] [facility] [employer] Member Subscriber Plan / Payer (Ef fective 2024-Present) Name:Padmini Price Relation to Subscriber:Self Name:Padmini Price Payer ID:Not on file [place] [place]: [place] [id number] Care Teams Mobile Application Architect Relationship Specialty Start Date End Date Oralia Nelson MD [address] [place] [address] PCP - General Family Medicine 01/08/25 Additional Source Comments The information contained in this document represents components of the legal health record. It is not the complete legal health record.[facility]
--- OUTSIDE RECORDS SUMMARY | 2025-01-28 16:37 | XMS_ITS | Patient Health Record ---
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 Problem Ankle sprain (52724552) Ankle Sprain (845.00) Active confirmed Problem Sprain of calcaneofibular ligament (90133955) Ankle Sprain/Latera l Ankle Sprain (845.02) Active confirmed Problem Ganglion cyst (50711657) Ganglion Cyst (727.43) Active confirmed Problem Hammer toe (183399256) Hammer toe (735.4) Active confirmed Problem Pain in limb (96271496) Pain in Limb (729.5) Active confirmed Plan Of Treatment Pending Test Test Name Order Date X ray : Ankle, left 3V 01/18/2012 56684 I&D ABSCESS- SIMPLE,SINGLE 012 84337- I&D ABSCESS-COMPLICATED,MULTI 06/2011, J0702- INJECT TENDON ORIGIN/INSER T 01/18/2012, J0702- INJECT or DRAIN, JOINT/BUR SA 01/18/2012 Insurance Providers Payer Name Payer Address Payer Phone Subscriber Number Group Number Insured Name Patient Relationship to Insured Coverage Start Date Coverage End Date [facility] [address] [place] [address] [id number] Padmini Price Self - patient is the insured Medical (General) History Medical History History ICD Code back, hip, knee pain chicken pox
== END 2025-01-28 14:05 | disposition home or self-care (01) ==
LOC: HO.HGS 13:42
PROVIDERS: PCP Family Medicine; Visit Provider Surgery
DX: D05.11 Intraductal carcinoma in situ of right breast (principal)
CPT/HCPCS: 99024